=== PATIENT | female | born 1970 | race Caucasian/White ===

== ENCOUNTER 2018-11-11 21:39 | Inpatient (IN) ==
[2018-11-11] MEDS ORDERED: SODIUM CHLORIDE 0.9% 1000ML 1,000 ML IV ONE (22:00)
[2018-11-11] MEDS ORDERED: ACETAMINOPHEN 1,000 MG/100 ML VIAL IV STA (22:19)
[2018-11-11] MEDS ORDERED: FAMOTIDINE 20MG/5ML IV PUSH IV STA (22:19)
[2018-11-11] MEDS ORDERED: PROCHLORPERAZINE 2 ML IV ONE (22:19)
[2018-11-11 22:28] LABS: Basophils # (auto) 0.03 K/uL (0-0.2); Basophils % (auto) 0.2 %; Eosinophils # (auto) 0.12 K/uL (0-0.5); Eosinophils % (auto) 0.9 %; Hematocrit (blood only) 51.5 % (37-47); Hemoglobin 18.4 g/dL (12.0-16.0); Immature Granulocytes # (auto) 0.03 K/uL (0.00-0.02); Immature Granulocytes % (auto) 0.2 %; Lymphocytes # (auto) 2.01 K/uL (1.2-3.4); Lymphocytes % (auto) 15.2 %; Mean Corpuscular Hgb Conc 35.7 g/dL (32-36); Mean Corpuscular Volume 86.3 fL (80-100); Mean Platelet Volume 9.6 fL (7.4-10.4); Monocytes # (auto) 0.68 K/uL (0.11-0.59); Monocytes % (auto) 5.1 %; Neutrophils # (auto) 10.37 K/uL (1.4-6.5); Neutrophils % (auto) 78.4 %; Platelet Count 352 K/uL (130-400); RDW Coefficient of Variation 13.7 % (11.5-14.5); RDW Standard Deviation 43.4 fL (36.4-46.3); Red Blood Count 5.97 M/uL (4.2-5.4); White Blood Count 13.24 K/uL (4.8-10.8)
[2018-11-11 22:29] LABS: Albumin Level 3.8 gm/dl (3.4-5.0); BUN Creatinine Ratio 10.6 (10-20); Calcium 10.2 mg/dl (8.5-10.1); Creatinine Clr Calc Pharmacy 84.7 ml/min; Est GFR (African American) 79.1; Est GFR (Non-African American) 68.2; Potassium 3.9 mmol/L (3.5-5.1)
[2018-11-11 22:32] LABS: Albumin Globulin Ratio 0.8 (0.9-2); Bilirubin,Total 0.5 mg/dl (0.2-1); Globulin 4.5 gm/dl (2.5-4.0); Total Protein 8.3 gm/dl (6.4-8.2)
[2018-11-11 22:34] LABS: Pregnancy Test, Serum Negative (Negative)
--- NOTE | 2018-11-11 22:44 | XRay Report ---
XR chest 1V portable CLINICAL HISTORY: Abdominal pain. COMPARISON STUDY: No previous studies for comparison. FINDINGS: Lung volumes are normal. There is no pneumothorax or pleural effusion. No consolidation or evidence for pulmonary edema. Cardiomediastinal silhouette is normal. IMPRESSION: No acute cardiopulmonary findings. Electronically signed by: Lalo Mills M.D. 11/11/2018 10:43 PM
[2018-11-11] MEDS ORDERED: IOVERSOL 100ml IV PRN (23:12)
[2018-11-11 23:30] LABS: Appearance Urine Cloudy (Clear); Bacteria Urine Automated Negative (Negative); Blood Urine Negative (Negative); Color Urine Dark Yellow; Epithelial Cell Urine Auto >30 /lpf (0-5); Glucose Urine UA Negative (Negative); Ketones Urine 1+ (Negative); Leukocyte Esterase Urine Trace (Negative); Nitrite Urine Negative (Negative); Protein Urine 1+ (Negative); RBC Urine Automated 0-4 /hpf (0-4); Specific Gravity Urine 1.026 (1.000-1.030); Urobilinogen Urine Negative (Negative)
[2018-11-11 23:35] LABS: Bilirubin Urine Negative (Negative); Ictotest Urine Negative (Negative)
[2018-11-11 23:43] LABS: Renal Epithelial Cells Urine 0-5 /lpf (0-5)
--- NOTE | 2018-11-12 00:18 | Emergency Department Note ---
Entered by Jonathan Awan acting as a scribe for Fred Lambert MD History of Present Illness General Chief complaint: Abdominal Pain Stated complaint: SEVERE CRAMPING IN STOMACH, CAN'T KEEP ANYTHING DO Time Seen by Provider: 11/11/18 22:00 Source: patient History of Present Illness Onset (ago): day(s) 2 Location: abdomen (upper) Pain Consistency: + intermittent Relieved By: + none Associated symptoms: + denies other symptoms (diarrhea, painful urination), + nausea/vomiting and + other (reflux); no fever/chills The patient is a 48 year old F who presents to the Emergency Room with complaints of intermittent upper abdominal pain that started 2 days ago. She states that 2 days ago she had a cheesesteak to eat from [employer]. She notes that she felt good when she went to sleep but notes that she was experiencing nausea when she woke up. She adds that she had burgers to eat last night and experienced worsening nausea and reflux that kept her from falling asleep. She notes that she tried to eat a banana and a ham sandwich today but vomited up both. She states that she is currently experiencing reflux, nausea, and vomiting. She denies experiencing a fever, chills, diarrhea, and painful u rination. She adds that she had a normal bowel movement today. She denies taking an antacid for her reflux. She notes that she took a hydrocodone yesterday but not today due to her vomiting. She states that she experienced her current symptoms in August. She notes that a CT of her abdomen at the time showed no problems. She states that compared to August, her symptoms are worse. She denies a history of pancreatitis. Home Medications Home Medications Medication Instructions Recorded Confirmed Type buspirone 5 mg PO BID 11/01/18 11/11/18 History sertraline 100 mg PO BID 11/01/18 11/11/18 History zolpidem [Ambien] 10 mg PO HS PRN 11/01/18 11/11/18 History cephalexin 500 mg PO QID 10 Days #40 cap 11/03/18 11/11/18 Rx oxycodone-acetaminophen [Percocet] 1 - 2 tab PO .q4-6h PRN #30 tab 11/03/18 11/11/18 Rx omeprazole 20 mg PO DAILY 11/12/18 11/12/18 History Allergies Allergy/AdvReac Type Severity Reaction Status Date / Time ciprofloxacin [From Cipro] AdvReac Severe Vomiting Verified 11/11/18 23:59 Past Med/Surg History Medical History Depression (Chronic) Gout (Chronic) PT DENIES Wound of left foot Morbid obesity (Chronic) Anxiety History of PCOS NO MEDICATION CURRENTLY 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 CURRENTLY IN REMISSION. Smoker Surgical History History of cholecystectomy (Chronic) OPEN History of nephrectomy (Chronic) LEFT Family History Mother Family history of diabetes mellitus Father Family history of diabetes mellitus Social History Preferred Language: Tuvaluan Communication Ability: Effective Bi Consultant Required: No Beliefs That Will Affect Care: None Current Living Situation: Spouse Other Information That Helps Us Care for You: No Feels Safe at Home: Yes Safety Concerns: Feels Safe At This Time Smoking Status: Current every day smoker Tobacco Type: cigarettes Cigarettes Per Day: 20 Do You Dip or Chew Tobacco: No Second Hand Exposure: No Tobacco Cessation Education Requested by Patient: No Hx Alcohol Use: No Hx Substance Use: No Review of Systems See HPI for pertinent positives & negatives. and A total of 10 systems reviewed and were otherwise negative Physical Exam Vital Signs Vital Signs - 24 hr 11/11/18 21:45 11/11/18 23:23 11/12/18 00:16 Temperature 36.9 C 36.7 C Temperature Source Oral Oral Sepsis Recent Fever Within 48 Hours No Sepsis New/Unexplained Change in Mental Status No Sepsis Action Taken by Nursing No Action Required Pulse Rate 105 H Pulse Rate [Left Apical] 83 68 Pulse Rate [Left Finger] Pulse Rhythm [Left Apical] Regular Respiratory Rate 18 20 16 Respiratory Effort / Characteristics Non-Labored Spontaneous Respiratory Depth Normal Respiratory Pattern Regular Blood Pressure 132/86 Blood Pressure [Left Arm] Blood Pressure [Right Arm] 113/88 141/61 H Blood Pressure Mean 101 Blood Pressure Mean [Left Arm] Blood Pressure Mean [Right Arm] 96 87 Blood Pressure Position [Left Arm] Pulse Oximetry 95 93 94 Oxygen Delivery Method Room Air Room Air Room Air 11/12/18 01:18 11/12/18 01:36 Temperature 36.8 C Temperature Source Oral Sepsis Recent Fever Within 48 Hours Sepsis New/Unexplained Change in Mental Status Sepsis Action Taken by Nursing Pulse Rate 87 Pulse Rate [Left Apical] Pulse Rate [Left Finger] 85 Pulse Rhythm [Left Apical] Respiratory Rate 16 16 Respiratory Effort / Characteristics Non-Labored Respiratory Depth Normal Respiratory Pattern Regular Blood Pressure 98/58 L Blood Pressure [Left Arm] 126/78 Blood Pressure [Right Arm] Blood Pressure Mean Blood Pressure Mean [Left Arm] 94 Blood Pressure Mean [Right Arm] Blood Pressure Position [Left Arm] Sitting Pulse Oximetry 92 94 Oxygen Delivery Method Room Air Room Air GENERAL: Awake, alert, uncomfortable-appearing HENT: Normocephalic, atraumatic. Oropharynx with dry mucous membranes and otherwise unremarkable. EYES: Normal conjunctiva. Sclera non-icteric. NECK: Supple. No nuchal rigidity. FROM. No JVD. RESPIRATORY: CTA bilaterally. CARDIAC: Regular rate, normal rhythm. Extremities warm and well perfused. Pulses equal. ABDOMEN: Soft, non-distended. Mild epigastric tenderness to palpation. No peritoneal signs. No rebound or guarding. No masses. RECTAL: Deferred. MUSCULOSKELETAL: Chest examination reveals no tenderness. The back is symmetrical on inspection without obvious abnormality. There is no CVA tenderness to palpation. No joint edema. LOWER EXTREMITIES: Calves are equal size bilaterally and non-tender. No edema. No discoloration. NEURO: Normal sensorium. No sensory or motor deficits noted. SKIN: No rash or jaundice noted. Course 2211: The patient was evaluated in room B8. A complete history and physical exam was performed. 2334: I reviewed the patient's case with Dr. Woody, Gastroenterology. Dr. Nick betancourt recommends medicine admission. Dr. Woody states that if patient is still symptomatic, ng will help alleviate her symptoms quicker. 2356: I reviewed the patient's case with Dr. Pope, [facility]ist. He will evaluate the patient for further management. Consultations Consultation #1: I reviewed the patient's case with Dr. Woody, Gastroenterology. Dr. Woody recommends medicine admission. Dr. Woody states that if patient is still symptomatic, ng will help alleviate her symptoms quicker. Time: 23:34 Consultation #2: I reviewed the patient's case with Dr. Pope, [facility] Hospitalist. He will evaluate the patient for further management. Time: 23:56 Administered Medications Sodium Chloride (Nss 1000ml) 1,000 mls @ 125 mls/hr IV .Q8H SEPIDEH Stop: 12/12/18 01:34 Last Admin: 11/12/18 02:08 Dose: 125 mls/hr Documented by: [id number] Discontinued Medications Famotidine (Pepcid 20mg Iv Push) 20 mg IV ONE STA Stop: 11/11/18 22:20 Last Admin: 11/11/18 22:30 Dose: 20 mg Documented by: [id number] Sodium Chloride (Nss 1000ml) 1,000 mls @ 999 mls/hr IV .Q1H1M ONE Stop: 11/11/18 23:00 Last Infusion: 11/11/18 23:05 Dose: 0 mls/hr Documented by: [id number] Admin: 11/11/18 22:03 Dose: 999 mls/hr Documented by: [id number] Acetaminophen (Ofirmev) 1,000 mg in 100 mls @ 400 mls/hr IV NOW STA Stop: 11/11/18 22:33 Last Infusion: 11/11/18 22:52 Dose: 0 mls/hr Documented by: [id number] Admin: 11/11/18 22:30 Dose: 400 mls/hr Documented by: [id number] Prochlorperazine (Compazine) 2 mls @ 1 mls/min IV ONE ONE Stop: 11/11/18 22:20 Last Admin: 11/11/18 22:30 Dose: 1 mls/min Documented by: [id number] Ioversol (Optiray 320 100ml) 65 ml IV ONCE PRN PRN Reason: Interaction Checking Stop: 11/15/18 23:11 Last Admin: 11/11/18 23:13 Dose: 65 ml Documented by: [id number] Nicotine (Nicoderm Cq) 21 mg TD DAILY SEPIDEH Stop: 12/12/18 02:49 Last Admin: 11/12/18 04:05 Dose: Not Given Documented by: [id number] Medical Decision Making Differential Diagnosis Differential diagnosis includes: appendicitis, diverticulitis, PUD, biliary pathology, UTI, pancreatitis, obstruction, mesenteric ischemia, aortic pathology, infections, inflammatory bowel disease, renal colic, as well as others were entertained. Medical Records Attestation: I reviewed the patient's medical records. Home Medications Current Medication List: was personally reviewed by me Laboratory Data Attestation: I reviewed the patient's lab results. Result diagrams: 11/12/18 05:18 11/11/18 21:54 Lab Results 11/11/18 11/11/18 11/11/18 Range/Units 21:54 21:54 21:54 WBC 13.24 H (4.8-10.8) K/uL RBC 5.97 H (4.2-5.4) M/uL Hgb 18.4 H (12.0-16.0) g/dL Hct 51.5 H (37-47) % MCV 86.3 (80-100) fL MCH 30.8 (25-34) pg MCHC 35.7 (32-36) g/dL RDW Std Deviation 43.4 (36.4-46.3) fL RDW Coeff of Varsha 13.7 (11.5-14.5) % Plt Count 352 (130-400) K/uL MPV 9.6 (7.4-10.4) fL Immature Gran % (Auto) 0.2 % Neut % (Auto) 78.4 % Lymph % (Auto) 15.2 % [place] % (Auto) 5.1 % Eos % (Auto) 0.9 % Baso % (Auto) 0.2 % Immature Gran # (Auto) 0.03 H (0.00-0.02) K/uL Neut # (Auto) 10.37 H (1.4-6.5) K/uL Lymph # (Auto) 2.01 (1.2-3.4) K/uL [place] # (Auto) 0.68 H (0.11-0.59) K/uL Eos # (Auto) 0.12 (0-0.5) K/uL Baso # (Auto) 0.03 (0-0.2) K/uL Sodium 136 (136-145) mmol/L Potassium 3.9 (3.5-5.1) mmol/L Chloride 102 (98-107) mmol/L Carbon Dioxide 26 (21-32) mmol/L Anion Gap 9.0 (3-11) BUN 10 (7-18) mg/dl Creatinine 0.98 (0.6-1.2) mg/dl Est Cr Clr Drug Dosing 84.7 ml/min Est GFR ( Amer) 79.1 Est GFR (Non-Af Amer) 68.2 BUN/Creatinine Ratio 10.6 (10-20) Glucose 144 H (70-99) mg/dl Calcium 10.2 H (8.5-10.1) mg/dl Total Bilirubin 0.5 (0.2-1) mg/dl AST 19 (15-37) U/L ALT 24 (12-78) U/L Alkaline Phosphatase 117 (45-117) U/L Troponin I (0-0.045) ng/ml Total Protein 8.3 H (6.4-8.2) gm/dl Albumin 3.8 (3.4-5.0) gm/dl Globulin 4.5 H (2.5-4.0) gm/dl Albumin/Globulin Ratio 0.8 L (0.9-2) Lipase 104 (73-393) U/L HCG, Qual Negative (Negative) Urine Color Urine Appearance (Clear) Urine pH (4.5-7.5) Ur Specific [place] (1.000-1.030) Urine Protein (Negative) Urine Glucose (UA) (Negative) Urine Ketones (Negative) Urine Blood (Negative) Urine Nitrite (Negative) Urine Bilirubin (Negative) Urine Urobilinogen (Negative) Ur Leukocyte Esterase (Negative) Urine WBC (Auto) (0-5) /hpf Urine RBC (Auto) (0-4) /hpf U Hyaline Cast (Auto) (0-5) /lpf U Epithel Cells (Auto) (0-5) /lpf Urine Bacteria (Auto) (Negative) Ur Renal Epithelial Cell (0-5) /lpf 11/11/18 11/11/18 11/12/18 Range/Units 22:51 23:15 05:18 WBC 10.75 (4.8-10.8) K/uL RBC 5.11 (4.2-5.4) M/uL Hgb 15.6 (12.0-16.0) g/dL Hct 44.4 (37-47) % MCV 86.9 (80-100) fL MCH 30.5 (25-34) pg MCHC 35.1 (32-36) g/dL RDW Std Deviation 43.8 (36.4-46.3) fL RDW Coeff of Varsha 13.7 (11.5-14.5) % Plt Count 257 (130-400) K/uL MPV 9.3 (7.4-10.4) fL Immature Gran % (Auto) 0.1 % Neut % (Auto) 66.5 % Lymph % (Auto) 24.5 % [place] % (Auto) 6.7 % Eos % (Auto) 1.9 % Baso % (Auto) 0.3 % Immature Gran # (Auto) 0.01 (0.00-0.02) K/uL Neut # (Auto) 7.16 H (1.4-6.5) K/uL Lymph # (Auto) 2.63 (1.2-3.4) K/uL [place] # (Auto) 0.72 H (0.11-0.59) K/uL Eos # (Auto) 0.20 (0-0.5) K/uL Baso # (Auto) 0.03 (0-0.2) K/uL Sodium (136-145) mmol/L Potassium (3.5-5.1) mmol/L Chloride (98-107) mmol/L Carbon Dioxide (21-32) mmol/L Anion Gap (3-11) BUN (7-18) mg/dl Creatinine (0.6-1.2) mg/dl Est Cr Clr Drug Dosing ml/min Est GFR ( Amer) Est GFR (Non-Af Amer) BUN/Creatinine Ratio (10-20) Glucose (70-99) mg/dl Calcium (8.5-10.1) mg/dl Total Bilirubin (0.2-1) mg/dl AST (15-37) U/L ALT (12-78) U/L Alkaline Phosphatase (45-117) U/L Troponin I < 0.015 (0-0.045) ng/ml Total Protein (6.4-8.2) gm/dl Albumin (3.4-5.0) gm/dl Globulin (2.5-4.0) gm/dl Albumin/Globulin Ratio (0.9-2) Lipase (73-393) U/L HCG, Qual (Negative) Urine Color Dark Yellow Urine Appearance Cloudy A (Clear) Urine pH 6.0 (4.5-7.5) Ur Specific [place] 1.026 (1.000-1.030) Urine Protein 1+ H (Negative) Urine Glucose (UA) Negative (Negative) Urine Ketones 1+ H (Negative) Urine Blood Negative (Negative) Urine Nitrite Negative (Negative) Urine Bilirubin Negative (Negative) Urine Urobilinogen Negative (Negative) Ur Leukocyte Esterase Trace H (Negative) Urine WBC (Auto) 1-5 (0-5) /hpf Urine RBC (Auto) 0-4 (0-4) /hpf U Hyaline Cast (Auto) 5-10 H (0-5) /lpf U Epithel Cells (Auto) >30 H (0-5) /lpf Urine Bacteria (Auto) Negative (Negative) Ur Renal Epithelial Cell 0-5 (0-5) /lpf Imaging Data Radiologist's Impression: Radiology results as stated below per my review and the radiologist's interpretation: XR chest 1V portable CLINICAL HISTORY: Abdominal pain. COMPARISON STUDY: No previous studies for comparison. FINDINGS: Lung volumes are normal. There is no pneumothorax or pleural effusion. No consolidation or evidence for pulmonary edema. Cardiomediastinal silhouette is normal. IMPRESSION: No acute cardiopulmonary findings. Electronically signed by: Lalo Mills M.D. 11/11/2018 10:[address] ABDOMEN & PELVIS With Contrast: Dilated fluid-filled loops of small bowel in the upper abdomen with distally decompressed loops. Findings concerning for small bowel obstruction. Appendix is normal. Gallbladder is not visualized. Possibly surgically absent. Please correlate. Evidence of prior granulomatous disease. Prior left nephrectomy. ECG Data Attestation: I personally reviewed and interpreted this ECG as follows: Indication: abdominal pain Rate (beats per minute): 89 Rhythm: sinus rhythm Findings: + nonspecific-ST abn and + Q waves (nonspecific abnormalities); no acute ischemic change Blood Pressure Blood Pressure Findings: Elevated blood pressure Blood Pressure Disposition: further management by hospitalist RACHAEL Valenzuela The patient is a pleasant 48 y/o woman with a pmhx of prior cholecystecomty and remote retroperitoneal fibrosis who presents to the emergency department with upper abdominal pain and nausea and vomiting for past 2 days per HPI. On arrival the patient is in NAD, AFVSS. Patient appears clinically cry. She has mild epigasric tenderness without peritoneal signs. EKG without overt acute ischemia. CXR negative. WBC, H/H, platelets wnl. Chemistry without acidosis. LFTs and electrolytes unremarkable. UA negative. WBC 13.2. HCT 51 c/w patient's clinically dry appearance. Platelets wnl. Chemistry without acidosis. LFTs and electrolytes unremarkable. Troponin negative. CT abd pelvis with SBO per pr eliminary [facility] report. Patient re-evaluated and feeling improved after IVF hydration, pepcid, and compazine. Prefers to defer NG tube at this time. Case d/w Dr. Woody, General surgery manager pulmonary, recommends admission to medicine, NG tube if symptoms persist, and refugio will be available for admitting consultation. Case d/w Dr. Pope, [facility] hospitalist, who will evaluate the patient for admission. Impression & Plan SBO (small bowel obstruction) Discharge Plan Visit Data *Final* Discharge Date/Time: 11/12/18 01:18 Chief Complaint: Abdominal Pain Stated Complaint: SEVERE CRAMPING IN STOMACH, CAN'T KEEP ANYTHING DO ED Provider: Fred Lambert Discharge Problem: SBO (small bowel obstruction) Patient Disposition: Admitted As Inpatient Discharge Instructions Interventions: ED Discharge Assessment Last Done: 11/12/18 01:18 The scribe's documentation has been prepared under my direction and personally reviewed by me in its entirety. I confirm that the note above accurately reflects all work, treatment, procedures, and medical decision making performed by me.
[2018-11-12] MEDS ORDERED: OXYCODONE/ACETAMINOPHEN 5mg/325mg TAB PO PRN (01:35)
[2018-11-12] MEDS ORDERED: ONDANSETRON INJ 2 MG/ML 2 ML VIAL IV PRN (01:35)
[2018-11-12] MEDS ORDERED: ZOLPIDEM TARTRATE 10 MG TAB PO PRN (01:35)
[2018-11-12] MEDS ORDERED: MoRPHine SULFATE 4 MG/ML 1 ML CARP\\VIAL IV PRN (01:35)
[2018-11-12] MEDS ORDERED: ACETAMINOPHEN 325 MG TAB PO PRN (01:35)
[2018-11-12] MEDS: SODIUM CHLORIDE 0.9% 1000ML 1,000 ML IV SCH ×2 (02:08→11:11)
--- NOTE | 2018-11-12 02:10 | History and Physical Report ---
DATE OF ADMISSION: 11/12/2018 CHIEF COMPLAINT: Abdominal pain. 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 Initially started with nausea, then with abdominal pain and then she vomited, pain is 8/10 in severity in the upper abdomen. No radiation. Currently with the pain medication, the pain is improved. Imaging study shows small-bowel obstruction. After the pain medication, she is feeling better. Currently, no nausea. She recently had left plantar surgery in September and again she has I and D and was given Keflex for 10 days. However, she did not take the medication today because of nausea but currently her nausea has improved. Denies any headache, no blurred vision, no dizziness, no earache, no sore throat, no difficulty swallowing. No chest pain or shortness of breath. No cough, no fever, no chills. Last bowel movement was today in the night, currently not passing any gas. No recent melena or hematochezia. Normal bladder movements. No burning micturition, no hematuria. No swelling in the legs. No rash. Currently, resting comfortably and hemodynamically stable. ALLERGIES: CIPROFLOXACIN. PAST MEDICAL HISTORY: As mentioned above. PAST SURGICAL HISTORY: Exploration of the abdomen, left retroperitoneal fibrosis, removal of left kidney, excision neuroma on the left, cholecystectomy. MEDICATIONS: The patient is on buspirone 5 mg p.o. b.i.d., cephalexin 500 mg p.o. q.i.d., omeprazole 20 mg p.o. daily, Percocet 1 tablet p.o. q. 6 hours p.r.n., Zoloft 100 mg p.o. b.i.d., zolpidem 10 mg p.o. at bedtime p.r.n. FAMILY HISTORY: Significant for mother has diabetes, hypertension and stroke. Father has heart disorder, hypertension. Sister has uterine cancer. Aunt and paternal grandmother has breast cancer. SOCIAL HISTORY: , smokes 1 pack a day. No alcohol use, no drug use. REVIEW OF SYMPTOMS: As per HPI. Rest of review of systems negative. PHYSICAL EXAMINATION: GENERAL: The patient is morbidly obese, not in acute distress. VITAL SIGNS: Temperature 36.7, pulse 68, respiratory rate 16, blood pressure 141/61, oxygen 94% room air. HEENT: No pallor, no icterus. Pupils equal, round, and reactive to light. NECK: No JVD, no neck masses, no carotid bruits. CARDIOVASCULAR: S1, S2 heard, regular rate and rhythm, no murmur, no gallop. RESPIRATORY SYSTEM: Normal AP diameter. No accessory muscle use. No wheezing, no crackles. ABDOMEN: Soft, bowel sounds very sluggish, diffuse abdominal tenderness. Mild guarding, no rigidity. No distention. CENTRAL NERVOUS SYSTEM: Cranial nerves II-XII grossly intact. Nonfocal. EXTREMITIES: Left plantar in dressing. No edema, no erythema seen. LABORATORIES: WBC 13.2, hemoglobin 18.4, hematocrit 51.5, platelets 352. Sodium 136, potassium 3.9, chloride 102, bicarbonate 26, BUN 10, creatinine 0.9, serum glucose 144, calcium 10.2, total bilirubin 0.5, AST 19, ALT 24, alkaline phosphatase 117. Troponin I less than 0.015. Lipase 104. HCG negative. Urinalysis positive for protein and ketones, trace leukocyte esterase. Chest x-ray, no acute cardiopulmonary findings. CT abdomen and pelvis, official reading pending. EKG: Normal sinus rhythm with rate of 89, nonspecific abnormalities. ASSESSMENT AND PLAN: This 48-year-old female who presents with abdominal pain and found to have small-bowel obstruction. 1. Small-bowel obstruction, abdominal pain. We will keep her n.p.o., IV fluids, IV antiemetics, IV pain meds p.r.n. Follow official report of CT scan. Followup KUB in a.m. Consult surgery for further recommendations. 2. Recent left plantar surgery, status post I and D, on Keflex, if not able to take p.o., will be changed to IV. 3. Depression. Continue Zoloft 4. Anxiety. Continue buspirone. 5. Prediabetes. We will follow HbA1c levels. Currently, n.p.o. 6. Deep venous thrombosis prophylaxis, sequential compression devices for now. 4. Disposition: Admit to medical floor. Expect to discharge home and follow up with the family doctor. Level 1 full code. MTDD
[2018-11-12] MEDS ORDERED: NICOTINE 21 MG/24 HR TDSY TD SCH (02:50)
[2018-11-12] MEDS ORDERED: Nursing to Pharmacy Communication ONE (03:46)
[2018-11-12 05:33] LABS: Basophils # (auto) 0.03 K/uL (0-0.2); Basophils % (auto) 0.3 %; Eosinophils % (auto) 1.9 %; Hematocrit (blood only) 44.4 % (37-47); Hemoglobin 15.6 g/dL (12.0-16.0); Immature Granulocytes # (auto) 0.01 K/uL (0.00-0.02); Immature Granulocytes % (auto) 0.1 %; Lymphocytes # (auto) 2.63 K/uL (1.2-3.4); Lymphocytes % (auto) 24.5 %; Mean Corpuscular Hgb Conc 35.1 g/dL (32-36); Mean Corpuscular Volume 86.9 fL (80-100); Mean Platelet Volume 9.3 fL (7.4-10.4); Monocytes # (auto) 0.72 K/uL (0.11-0.59); Monocytes % (auto) 6.7 %; Neutrophils # (auto) 7.16 K/uL (1.4-6.5); Neutrophils % (auto) 66.5 %; Platelet Count 257 K/uL (130-400); RDW Coefficient of Variation 13.7 % (11.5-14.5); RDW Standard Deviation 43.8 fL (36.4-46.3); Red Blood Count 5.11 M/uL (4.2-5.4); White Blood Count 10.75 K/uL (4.8-10.8)
[2018-11-12 06:09] LABS: BUN Creatinine Ratio 14.6 (10-20); Calcium 8.6 mg/dl (8.5-10.1); Creatinine Clr Calc Pharmacy 114.1 ml/min; Est GFR (African American) 112.9; Est GFR (Non-African American) 97.4; Magnesium 2.5 mg/dl (1.8-2.4); Potassium 3.8 mmol/L (3.5-5.1)
--- NOTE | 2018-11-12 07:34 | CT Scan Report ---
CT SCAN OF THE ABDOMEN AND PELVIS WITH IV CONTRAST CLINICAL HISTORY: Upper abdominal pain. Nausea and vomiting. COMPARISON STUDY: No priors. TECHNIQUE: Following the IV administration of 65 cc of Optiray 320, CT scan of the abdomen and pelvi s is performed from the lung bases to the proximal femora. Images are reviewed in the axial, sagittal , and coronal planes. IV contrast was administered without complication. A dose lowering technique wa s utilized adhering to the principles of ALARA. CT DOSE: 1067.06 mGycm FINDINGS: Lung bases: The heart is normal in size and without pericardial effusion. There is no airspace consol idation or pleural effusion. There is a large calcified granuloma at the right lung base. A calcified right hilar node is partially imaged. There is a small hiatal hernia. Liver: The contrast-enhanced liver is enlarged, measuring 18.9 cm in length. The liver demonstrates d iffusely diminished attenuation consistent with hepatic steatosis. There is minimal central intrahepa tic biliary ductal dilatation. The hepatic veins and portal veins are patent. Gallbladder: Surgically absent. Spleen: Normal in size and attenuation. Pancreas: Unremarkable. Adrenal glands: Unremarkable. Kidneys: The left kidney is surgically absent. No abnormality is seen within the left renal fossa. Th e contrast enhanced right kidney is normal in size and without hydronephrosis. The right kidney enhan supa homogeneously. Abdominal vasculature: The abdominal aorta is normal in course and caliber. Bowel: The proximal small bowel loops are distended and fluid-filled, measuring up to 4 cm in diamete r. The distal small bowel and colon are decompressed an the appearance is consistent with a small bow el obstruction. The transition point is likely present in the ventral upper pelvis, and this is likel y on the basis of adhesions. There is no pneumatosis intestinalis or portal venous gas. No focally th ick walled bowel loops are identified. Trace interloop fluid is observed. The appendix is well-visua lized and normal. Peritoneum: There is no intraperitoneal free air or abdominal ascites. Lymphadenopathy: None. Pelvic viscera: The bladder is decompressed and not well evaluated. The uterus and adnexa are normal as imaged. There are bilateral ovarian follicles. Skeletal structures: No lytic or blastic lesions are seen. Sclerotic change is noted in the sacroilia c joints. IMPRESSION: 1. Findings are consistent with a small bowel obstruction as detailed above. This is likely on the ba sis of adhesions. 2. There is interloop fluid. No focally thick walled bowel loops are identified and no intraperitonea l free air is seen. 3. Status post left nephrectomy. 4. Hepatomegaly and hepatic steatosis. 5. Additional findings as above. Electronically signed by: Aashish Stoner M.D. 11/12/2018 7:33 AM
[2018-11-12] MEDS: NICOTINE 21 MG/24 HR TDSY TD SCH (09:25)
[2018-11-12] MEDS: SERTRALINE HCL 100 MG TABLET PO SCH ×2 (09:25→20:38)
[2018-11-12] MEDS: PANTOprazole 40 MG TAB PO SCH (09:25)
[2018-11-12] MEDS: cephALEXin 500 MG CAP PO SCH ×4 (09:25→20:38)
--- NOTE | 2018-11-12 09:25 | XRay Report ---
KUB CLINICAL HISTORY: Follow-up small bowel obstruction. FINDINGS: 4 AP supine abdominal radiographs are correlated with abdominal CT dated 11/11/2018. Numerous surgical clips are scattered throughout the abdomen and pelvis. There is no radiographic evidence of high-grade bowel obstruction. Mildly distended small bowel loops measure up to 4.3 cm consistent wit h a small bowel obstruction seen on yesterday's CT scan. Gas is present throughout the colon. There i s excreted IV contrast within the right renal collecting system and bladder. There are no abnormal ab dominal calcifications. The bony structures appear intact. The lung bases are clear as imaged. IMPRESSION: Findings are consistent with persistent low-grade small bowel obstruction. Electronically signed by: Aashish Stoner M.D. 11/12/2018 9:24 AM
--- NOTE | 2018-11-12 13:13 | Consultation ---
Date of Consultation November 12, 2018 Assessment & Plan (1) SBO (small bowel obstruction): 48 yr old woman with first episode of small bowel obstruction likely related to prior adhesions. Appears to be improving. Would continue bowel rest, IVF for today. If better tomorrow, can start clear liquids. Explained that it can take 1-3 days to resolve. Risk of recurrence reviewed. No indication for surgical intervention currently. she was scheduled for a D&C tomorrow for eval of vaginal bleeding. Explained this will need to be rescheduled. Present on Admission?: Yes History of Present Illness Requesting Physician: Chance Mendez MD Reason for Consultation: small bowel obstruction Attending Physician: Chance Mendez MD History of Present Illness 48 yr old woman with history of open cholecystectomy, exploratory laparatomy, nephrectomy presents with abdominal pain, nausea and vomiting of one day's duration. Pain started acutely. No prior similar episodes. Was sharp, cramping, coming in waves, located in upper abdomen. Prior to pain had nausea and then vomiting. Last bowel movement was smaller than usual. [place] more bloated. Pain better with pain medications. No exacerbating factors. Since arrival in ER, no further vomiting, pain improved, now having loose stools. PMH notable for retroperitoneal fibrosis, morbid obesity, prediabetes. Allergies Allergy/AdvReac Type Severity Reaction Status Date / Time ciprofloxacin [From Cipro] AdvReac Severe Vomiting Verified 11/11/18 23:59 Home Medications Home Medications Medication Instructions Recorded Confirmed Type buspirone 5 mg PO BID 11/01/18 11/11/18 History sertraline 100 mg PO BID 11/01/18 11/11/18 History zolpidem [Ambien] 10 mg PO HS PRN 11/01/18 11/11/18 History cephalexin 500 mg PO QID 10 Days #40 cap 11/03/18 11/11/18 Rx oxycodone-acetaminophen [Percocet] 1 - 2 tab PO .q4-6h PRN #30 tab 11/03/18 11/11/18 Rx omeprazole 20 mg PO DAILY 11/12/18 11/12/18 History Patient History Medical History Depression (Chronic) Gout (Chronic) PT DENIES Wound of left foot Morbid obesity (Chronic) Anxiety History of PCOS NO MEDICATION CURRENTLY 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 CURRENTLY IN REMISSION. Smoker Surgical History History of cholecystectomy (Chronic) OPEN History of nephrectomy (Chronic) LEFT Family History Mother Family history of diabetes mellitus Father Family history of diabetes mellitus Social History Preferred Language: Turkmen Communication Ability: Effective Manager City Required: No Beliefs That Will Affect Care: None Current Living Situation: Spouse Other Information That Helps Us Care for You: No Feels Safe at Home: Yes Safety Concerns: Feels Safe At This Time Smoking Status: Current every day smoker Tobacco Type: cigarettes Cigarettes Per Day: 20 Do You Dip or Chew Tobacco: No Second Hand Exposure: No Tobacco Cessation Education Requested by Patient: No Hx Alcohol Use: No Hx Substance Use: No Review of Systems Constitutional: no fever and no chills Eyes: no problem reported Ear, Nose, Mouth, Throat: no problem reported Respiratory: no problem reported Cardiovascular: no problem reported Gastrointestinal: as per Subjective / HPI Genitourinary: vaginal bleeding for which she is scheduled for D&C tomorrow Integumentary: s/p recent surgery to left foot with subsequent I&D and antibiotics for cellulitis (keflex) Neurologic: no problem reported Psychiatric: no problem reported Physical Exam Constitutional: WD/WN, vitals as above Eyes: PERRL, conjunctivae normal, anicteric sclerae ENMT: external ear and nose normal, oropharynx normal Respiratory: normal respiratory effort, lungs clear to auscultation Cardiovascular: RRR, no murmur, no edema Gastrointestinal (Abdomen): Inspection/Auscultation: abdomen normal to inspection and normal bowel sounds; abdomen not distended Percussion/Palpation: abdomen soft; abdomen nontender and no guarding well healed midline incision and right subcostal incision Neurologic: moves all extremities; no focal motor deficits Psychiatric: A+Ox3, euthymic affect Results & Data Vital Signs (Past 12 Hours) Vital Signs Temp Pulse Pulse Resp BP BP Pulse Ox 11/12/18 06:56 36.7 C 91 H 18 141/80 H 91 11/12/18 01:36 36.8 C 85 16 126/78 94 11/12/18 01:18 87 16 98/58 L [address] 13.24 on admit -> 10.75 now Diagnostic Findings AXR this morning FINDINGS: 4 AP supine abdominal radiographs are correlated with abdominal CT dated 11/11/2018. Numerous surgical clips are scattered throughout the abdomen and pelvis. There is no radiographic evidence of high-grade bowel obstruction. Mildly distended small bowel loops measure up to 4.3 cm consistent with a small bowel obstruction seen on yesterday's CT scan. Gas is present throughout the colon. There is excreted IV contrast within the right renal collecting system and bladder. There are no abnormal abdominal calcifications. The bony structures appear intact. The lung bases are clear as imaged. IMPRESSION: Findings are consistent with persistent low-grade small bowel obstruction. CT SCAN OF THE ABDOMEN AND PELVIS WITH IV CONTRAST IMPRESSION: 1. Findings are consistent with a small bowel obstruction as detailed above. This is likely on the basis of adhesions. 2. There is interloop fluid. No focally thick walled bowel loops are identified and no intraperitoneal free air is seen. 3. Status post left nephrectomy. 4. Hepatomegaly and hepatic steatosis. 5. Additional findings as above.
--- NOTE | 2018-11-12 13:22 | Hospitalist Progress Note ---
Date of Service November 12, 2018 Assessment & Plan (1) SBO (small bowel obstruction): This 48-year-old female who presents with abdominal pain and found to have small-bowel obstruction. Small-bowel obstruction, abdominal pain. -CT scan 11/11/18: The proximal small bowel loops are distended and fluid-filled, measuring up to 4 cm in diameter. The distal small bowel and colon are decompressed an the appearance is consistent with a small bowel obstruction. The transition point is likely present in the ventral upper pelvis, and this is likely on the basis of adhesions. There is no pneumatosis intestinalis or portal venous gas. No focally thick walled bowel loops are identified. Trace interloop fluid is observed -KUB 11/12/18 Findings are consistent with persistent low-grade small bowel obstruction -as per general surgery: continue bowel rest, IVF for today. If better tomorrow, can start clear liquids. Explained that it can take 1-3 days to resolve. Risk of recurrence reviewed. No indication for surgical intervention currently. Recent left plantar surgery -left foot in dressing -history of incision and drainage -continue Keflex History of Depression -Continue Zoloft History of Anxiety -Continue buspirone. Prediabetes -follow HbA1c levels -Currently, NPO Deep venous thrombosis prophylaxis, sequential compression devices Full Code Subjective Patient denies vomiting today. last vomiting episode when at home. patient reports bowel movements of loose stools. denies chest pain. some tenderness on palpation of abdomen. no shortness of breath. no lightheadedness. no dizziness Physical Exam Constitutional: WD/WN, vitals as above Eyes: PERRL, conjunctivae normal, anicteric sclerae EOM intact bilaterally ENMT: external ear and nose normal, oropharynx normal Neck: trachea midline, no thyromegaly Respiratory: normal respiratory effort, lungs clear to auscultation Cardiovascular: RRR, no murmur, no edema Gastrointestinal (Abdomen): Inspection/Auscultation: abdomen normal to inspection and normal bowel sounds tenderness to palpation of epigastric area Musculoskeletal: no cyanosis or clubbing, extremities motor strength 5/5 Head/Neck/Chest: normocephalic and head atraumatic left foot in dressing Neurologic: PERRL, EOMI, accommodation nl, no face palsy, no dysarthria CN's II-XI intact bilaterally Psychiatric: A+Ox3, euthymic affect Results & Data Vital Signs (Past 12 Hours) Vital Signs Temp Pulse Resp BP Pulse Ox 11/12/18 06:56 36.7 C 91 H 18 141/80 H 91 11/12/18 01:36 36.8 C 85 16 126/78 94
[2018-11-12] MEDS: D5W AND 1/2NSS 1,000 ML IV SCH (14:15)
[2018-11-13] MEDS: D5W AND 1/2NSS 1,000 ML IV SCH (01:41)
[2018-11-13 06:31] LABS: Estimated Average Glucose 131 mg/dl; Hemoglobin A1C 6.2 % (4.5-5.6)
[2018-11-13 06:42] LABS: Basophils # (auto) 0.02 K/uL (0-0.2); Basophils % (auto) 0.4 %; Eosinophils # (auto) 0.29 K/uL (0-0.5); Eosinophils % (auto) 5.2 %; Hematocrit (blood only) 42.3 % (37-47); Hemoglobin 14.3 g/dL (12.0-16.0); Immature Granulocytes # (auto) 0.01 K/uL (0.00-0.02); Immature Granulocytes % (auto) 0.2 %; Lymphocytes # (auto) 1.65 K/uL (1.2-3.4); Lymphocytes % (auto) 29.5 %; Mean Corpuscular Hgb Conc 33.8 g/dL (32-36); Mean Corpuscular Volume 87.4 fL (80-100); Mean Platelet Volume 9.4 fL (7.4-10.4); Monocytes % (auto) 5.4 %; Neutrophils # (auto) 3.33 K/uL (1.4-6.5); Neutrophils % (auto) 59.3 %; Platelet Count 227 K/uL (130-400); RDW Coefficient of Variation 13.5 % (11.5-14.5); RDW Standard Deviation 43.4 fL (36.4-46.3); Red Blood Count 4.84 M/uL (4.2-5.4)
[2018-11-13 07:17] LABS: BUN Creatinine Ratio 9.7 (10-20); Calcium 8.5 mg/dl (8.5-10.1); Est GFR (African American) 93.9; Potassium 3.6 mmol/L (3.5-5.1)
[2018-11-13] MEDS: SERTRALINE HCL 100 MG TABLET PO SCH ×2 (08:57→20:05)
[2018-11-13] MEDS: cephALEXin 500 MG CAP PO SCH ×4 (08:57→21:40)
[2018-11-13] MEDS: NICOTINE 21 MG/24 HR TDSY TD SCH (08:57)
[2018-11-13] MEDS: PANTOprazole 40 MG TAB PO SCH (08:57)
--- NOTE | 2018-11-13 09:02 | Hospitalist Progress Note ---
Date of Service November 13, 2018 Assessment & Plan (1) SBO (small bowel obstruction): This 48-year-old female who presents with abdominal pain and found to have small-bowel obstruction. Small-bowel obstruction, abdominal pain. -CT scan 11/11/18: The proximal small bowel loops are distended and fluid-filled, measuring up to 4 cm in diameter. The distal small bowel and colon are decompressed an the appearance is consistent with a small bowel obstruction. The transition point is likely present in the ventral upper pelvis, and this is likely on the basis of adhesions. There is no pneumatosis intestinalis or portal venous gas. No focally thick walled bowel loops are identified. Trace interloop fluid is observed -KUB 11/12/18 Findings are consistent with persistent low-grade small bowel obstruction -as per general surgery on 11/12/18: continue bowel rest, IVF for today. If better tomorrow, can start clear liquids. Explained that it can take 1-3 days to resolve. Risk of recurrence reviewed. No indication for surgical intervention currently. -11/13/18 update: Patient reports she is continuing to make bowel movements but same as yesterday they are loose stools. She is urinating. No vomiting. abdomen pain appears better compared to yesterday as there is no tenderness on palpation today. Patient She agrees to try clear liquid diet today Recent left plantar surgery -left foot in dressing -history of incision and drainage -continue Keflex History of Depression -Continue Zoloft History of Anxiety -Continue buspirone. Prediabetes -HbA1c is 6.2 on this admission Deep venous thrombosis prophylaxis, sequential compression devices Full Code Subjective Patient reports she is continuing to make bowel movements but same as yesterday they are loose stools. She is urinating. No vomiting. abdomen pain appears better compared to yesterday as there is no tenderness on palpation today. Patient She agrees to try clear liquid diet today. denies chest pain or shortness of breath. denies lightheadedness or dizziness Physical Exam Constitutional: WD/WN, vitals as above Eyes: PERRL, conjunctivae normal, anicteric sclerae EOM intact bilaterally ENMT: external ear and nose normal, oropharynx normal Neck: trachea midline, no thyromegaly Respiratory: normal respiratory effort, lungs clear to auscultation Cardiovascular: RRR, no murmur, no edema Gastrointestinal (Abdomen): Inspection/Auscultation: abdomen normal to inspection and normal bowel sounds Musculoskeletal: no cyanosis or clubbing, extremities motor strength 5/5 Head/Neck/Chest: normocephalic and head atraumatic Neurologic: PERRL, EOMI, accommodation nl, no face palsy, no dysarthria CN's II-XI intact bilaterally Psychiatric: A+Ox3, euthymic affect Results & Data Vital Signs (Past 12 Hours) Vital Signs Temp Pulse Resp BP Pulse Ox 11/13/18 06:49 36.7 C 70 18 133/82 93 11/12/18 23:50 37.1 C 82 14 128/78 92
[2018-11-13] MEDS ORDERED: POLYETHYLENE (MIRALAX) 17 GM PACK PO STA (09:07)
--- NOTE | 2018-11-13 13:29 | Surgery Progress Note ---
Date of Service November 13, 2018 Assessment & Plan (1) SBO (small bowel obstruction): 48 yr old woman with first episode of small bowel obstruction likely related to prior adhesions. Appears to be improving. + bowel function. No n/v. 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 Calvo was present during my examination and agrees with above Subjective feeling much better having liquid bowel movements and passing flatus no abdominal pain no n/v tolerated clear liquids Physical Exam Constitutional: WD/WN, vitals as above + morbidly obese; no acute distress and not ill appearing Respiratory: normal respiratory effort; no respiratory distress Gastrointestinal (Abdomen): Inspection/Auscultation: abdomen normal to inspection; abdomen not distended Percussion/Palpation: abdomen soft; abdomen nontender, no guarding and abdomen not rigid Skin: no rashes, warm and dry Psychiatric: A+Ox3, euthymic affect Results & Data Vital Signs (Past 12 Hours) Vital Signs Temp Pulse Resp BP Pulse Ox 11/13/18 06:49 36.7 C 70 18 133/82 93 Laboratory Results 11/13/18 11/13/18 11/12/18 Range/Units 06:13 06:13 05:18 WBC 5.60 (4.8-10.8) K/uL RBC 4.84 (4.2-5.4) M/uL Hgb 14.3 (12.0-16.0) g/dL Hct 42.3 (37-47) % MCV 87.4 (80-100) fL MCH 29.5 (25-34) pg MCHC 33.8 (32-36) g/dL RDW Std Deviation 43.4 (36.4-46.3) fL RDW Coeff of Varsha 13.5 (11.5-14.5) % Plt Count 227 (130-400) K/uL MPV 9.4 (7.4-10.4) fL Immature Gran % (Auto) 0.2 % Neut % (Auto) 59.3 % Lymph % (Auto) 29.5 % [place] % (Auto) 5.4 % Eos % (Auto) 5.2 % Baso % (Auto) 0.4 % Immature Gran # (Auto) 0.01 (0.00-0.02) K/uL Neut # (Auto) 3.33 (1.4-6.5) K/uL Lymph # (Auto) 1.65 (1.2-3.4) K/uL [place] # (Auto) 0.30 (0.11-0.59) K/uL Eos # (Auto) 0.29 (0-0.5) K/uL Baso # (Auto) 0.02 (0-0.2) K/uL Sodium 140 (136-145) mmol/L Potassium 3.6 (3.5-5.1) mmol/L Chloride 110 H (98-107) mmol/L Carbon Dioxide 23 (21-32) mmol/L Anion Gap 7.0 (3-11) BUN 8 (7-18) mg/dl Creatinine 0.85 (0.6-1.2) mg/dl Est Cr Clr Drug Dosing 98.0 ml/min Est GFR ( Amer) 93.9 Est GFR (Non-Af Amer) 81.0 BUN/Creatinine Ratio 9.7 L (10-20) Glucose 115 H (70-99) mg/dl Estimat Average Glucose 131 mg/dl Hemoglobin A1c 6.2 H (4.5-5.6) % Calcium 8.5 (8.5-10.1) mg/dl
[2018-11-14 07:41] LABS: Basophils # (auto) 0.01 K/uL (0-0.2); Basophils % (auto) 0.2 %; Eosinophils % (auto) 5.2 %; Hematocrit (blood only) 43.2 % (37-47); Immature Granulocytes # (auto) 0.02 K/uL (0.00-0.02); Immature Granulocytes % (auto) 0.3 %; Lymphocytes # (auto) 1.68 K/uL (1.2-3.4); Lymphocytes % (auto) 28.9 %; Mean Corpuscular Hgb Conc 34.7 g/dL (32-36); Mean Corpuscular Volume 85.9 fL (80-100); Mean Platelet Volume 9.1 fL (7.4-10.4); Monocytes # (auto) 0.34 K/uL (0.11-0.59); Monocytes % (auto) 5.9 %; Neutrophils # (auto) 3.46 K/uL (1.4-6.5); Neutrophils % (auto) 59.5 %; Platelet Count 222 K/uL (130-400); RDW Coefficient of Variation 13.2 % (11.5-14.5); RDW Standard Deviation 41.4 fL (36.4-46.3); Red Blood Count 5.03 M/uL (4.2-5.4); White Blood Count 5.81 K/uL (4.8-10.8)
[2018-11-14 08:13] LABS: BUN Creatinine Ratio 8.2 (10-20); Calcium 8.9 mg/dl (8.5-10.1); Creatinine Clr Calc Pharmacy 90.6 ml/min; Est GFR (African American) 85.3; Est GFR (Non-African American) 73.6; Potassium 3.8 mmol/L (3.5-5.1)
--- NOTE | 2018-11-14 08:45 | Surgery Progress Note ---
Date of Service November 14, 2018 Assessment & Plan (1) SBO (small bowel obstruction): 48 yr old woman with first episode of small bowel obstruction likely related to prior adhesions. Resolved. No further abdominal pain. + bowel function. No n/v. tolerating full liquids Plan: Advance diet to low fiber this morning, if tolerates, okay from surgical standpoint for discharge. 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 Becoming more formed Review of Systems Constitutional: no fever, no chills and no sweats Respiratory: no dyspnea Cardiovascular: no chest pain, no dyspnea and no lightheadedness Gastrointestinal: as per Subjective / HPI Physical Exam Constitutional: + morbidly obese Respiratory: normal respiratory effort; no respiratory distress Gastrointestinal (Abdomen): Inspection/Auscultation: abdomen not distended Percussion/Palpation: abdomen soft; abdomen nontender, no guarding and abdomen not rigid Skin: no rashes, warm and dry Psychiatric: A+Ox3, euthymic affect Results & Data Vital Signs (Past 12 Hours) Vital Signs Temp Pulse Resp BP Pulse Ox 11/14/18 06:56 36.6 C 67 18 117/82 92 11/13/18 23:10 36.8 C 63 16 138/75 92 Laboratory Results 11/14/18 11/14/18 Range/Units 07:30 07:30 WBC 5.81 (4.8-10.8) K/uL RBC 5.03 (4.2-5.4) M/uL Hgb 15.0 (12.0-16.0) g/dL Hct 43.2 (37-47) % MCV 85.9 (80-100) fL MCH 29.8 (25-34) pg MCHC 34.7 (32-36) g/dL RDW Std Deviation 41.4 (36.4-46.3) fL RDW Coeff of Varsha 13.2 (11.5-14.5) % Plt Count 222 (130-400) K/uL MPV 9.1 (7.4-10.4) fL Immature Gran % (Auto) 0.3 % Neut % (Auto) 59.5 % Lymph % (Auto) 28.9 % [place] % (Auto) 5.9 % Eos % (Auto) 5.2 % Baso % (Auto) 0.2 % Immature Gran # (Auto) 0.02 (0.00-0.02) K/uL Neut # (Auto) 3.46 (1.4-6.5) K/uL Lymph # (Auto) 1.68 (1.2-3.4) K/uL [place] # (Auto) 0.34 (0.11-0.59) K/uL Eos # (Auto) 0.30 (0-0.5) K/uL Baso # (Auto) 0.01 (0-0.2) K/uL Sodium 140 (136-145) mmol/L Potassium 3.8 (3.5-5.1) mmol/L Chloride 108 H (98-107) mmol/L Carbon Dioxide 25 (21-32) mmol/L Anion Gap 7.0 (3-11) BUN 8 (7-18) mg/dl Creatinine 0.92 (0.6-1.2) mg/dl Est Cr Clr Drug Dosing 90.6 ml/min Est GFR ( Amer) 85.3 Est GFR (Non-Af Amer) 73.6 BUN/Creatinine Ratio 8.2 L (10-20) Glucose 105 H (70-99) mg/dl Calcium 8.9 (8.5-10.1) mg/dl
[2018-11-14] MEDS: cephALEXin 500 MG CAP PO SCH (08:48)
[2018-11-14] MEDS: NICOTINE 21 MG/24 HR TDSY TD SCH (08:48)
[2018-11-14] MEDS: PANTOprazole 40 MG TAB PO SCH (08:48)
[2018-11-14] MEDS: SERTRALINE HCL 100 MG TABLET PO SCH (08:49)
--- NOTE | 2018-11-14 10:48 | Hospitalist Progress Note ---
Date of Service November 14, 2018 Assessment & Plan (1) SBO (small bowel obstruction): This 48-year-old female who presents with abdominal pain and found to have small-bowel obstruction. Small-bowel obstruction, abdominal pain. -CT scan 11/11/18: The proximal small bowel loops are distended and fluid-filled, measuring up to 4 cm in diameter. The distal small bowel and colon are decompressed an the appearance is consistent with a small bowel obstruction. The transition point is likely present in the ventral upper pelvis, and this is likely on the basis of adhesions. There is no pneumatosis intestinalis or portal venous gas. No focally thick walled bowel loops are identified. Trace interloop fluid is observed -KUB 11/12/18 Findings are consistent with persistent low-grade small bowel obstruction -as per general surgery on 11/12/18: continue bowel rest, IVF for today. If better tomorrow, can start clear liquids. Explained that it can take 1-3 days to resolve. Risk of recurrence reviewed. No indication for surgical intervention currently. -11/13/18 update: Patient reports she is continuing to make bowel movements but same as yesterday they are loose stools. She is urinating. No vomiting. abdomen pain appears better compared to yesterday as there is no tenderness on palpation today. Patient She agrees to try clear liquid diet today -11/14/18: patient's diet was advanced to full liquids at night time of 11/13/18 and no acute issues; general surgery started low fiber diet and encouraged ambulation to help with bowel motility and no surgical interventions Recent left plantar surgery -left foot in dressing -history of incision and drainage -continue Keflex History of Depression -Continue Zoloft History of Anxiety -Continue buspirone. Prediabetes -HbA1c is 6.2 on this admission -Recommend low sugar diet to prevent prediabetes condition from becoming diabetes conditions Deep venous thrombosis prophylaxis, sequential compression devices Full Code Discharge Diagnosis Small bowel obstruction, Prediabetes (Hemoglobin A1c is 6.2), History of depression (on antidepressants) Discharge Instructions Patient is discharged to home with follow up Recommend low fiber diet for the next week encouraged ambulation to help with bowel motility Recommend low sugar diet to prevent prediabetes condition from becoming diabetes conditions 11/17/2018 10:20 AM Provider Zully Aguirre MD [facility] 11/30/2018 2:30 PM Provider Kristina Chinchilla MD Department [facility] Gynecology/Obstetrics Subjective patient tolerated liquid diet and then the low fiber diet. no abdomen pain. no vomiting. continues to be able to make bowel movements. no lightheadedness. no dizziness. discharge instructions were discussed. Physical Exam Constitutional: WD/WN, vitals as above Eyes: PERRL, conjunctivae normal, anicteric sclerae EOM intact bilaterally ENMT: external ear and nose normal, oropharynx normal Neck: trachea midline, no thyromegaly Respiratory: normal respiratory effort, lungs clear to auscultation Cardiovascular: RRR, no murmur, no edema Gastrointestinal (Abdomen): Inspection/Auscultation: abdomen normal to inspection and normal bowel sounds Musculoskeletal: no cyanosis or clubbing, extremities motor strength 5/5 Head/Neck/Chest: normocephalic and head atraumatic Neurologic: PERRL, EOMI, accommodation nl, no face palsy, no dysarthria CN's II-XI intact bilaterally Psychiatric: A+Ox3, euthymic affect Results & Data Vital Signs (Past 12 Hours) Vital Signs Temp Pulse Resp BP Pulse Ox 11/14/18 06:56 36.6 C 67 18 117/82 92 11/13/18 23:10 36.8 C 63 16 138/75 92
--- NOTE | 2018-11-14 10:57 | Discharge Summary ---
Date of Service November 14, 2018 Admission HPI Per Admitting Provider DATE OF ADMISSION: 11/12/2018 CHIEF COMPLAINT: Abdominal pain. 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 Initially started with nausea, then with abdominal pain and then she vomited, pain is 8/10 in severity in the upper abdomen. No radiation. Currently with the pain medication, the pain is improved. Imaging study shows small-bowel obstruction. After the pain medication, she is feeling better. Currently, no nausea. She recently had left plantar surgery in September and again she has I and D and was given Keflex for 10 days. However, she did not take the medication today because of nausea but currently her nausea has improved. Denies any headache, no blurred vision, no dizziness, no earache, no sore throat, no difficulty swallowing. No chest pain or shortness of breath. No cough, no fever, no chills. Last bowel movement was today in the night, currently not passing any gas. No recent melena or hematochezia. Normal bladder movements. No burning micturition, no hematuria. No swelling in the legs. No rash. Currently, resting comfortably and hemodynamically stable. ALLERGIES: CIPROFLOXACIN. PAST MEDICAL HISTORY: As mentioned above. PAST SURGICAL HISTORY: Exploration of the abdomen, left retroperitoneal fibrosis, removal of left kidney, excision neuroma on the left, cholecystectomy. MEDICATIONS: The patient is on buspirone 5 mg p.o. b.i.d., cephalexin 500 mg p.o. q.i.d., omeprazole 20 mg p.o. daily, Percocet 1 tablet p.o. q. 6 hours p.r.n., Zoloft 100 mg p.o. b.i.d., zolpidem 10 mg p.o. at bedtime p.r.n. FAMILY HISTORY: Significant for mother has diabetes, hypertension and stroke. Father has heart disorder, hypertension. Sister has uterine cancer. Aunt and paternal grandmother has breast cancer. SOCIAL HISTORY: , smokes 1 pack a day. No alcohol use, no drug use. REVIEW OF SYMPTOMS: As per HPI. Rest of review of systems negative. Admission Exam Per Admitting Provider PHYSICAL EXAMINATION: GENERAL: The patient is morbidly obese, not in acute distress. VITAL SIGNS: Temperature 36.7, pulse 68, respiratory rate 16, blood pressure 141/61, oxygen 94% room air. HEENT: No pallor, no icterus. Pupils equal, round, and reactive to light. NECK: No JVD, no neck masses, no carotid bruits. CARDIOVASCULAR: S1, S2 heard, regular rate and rhythm, no murmur, no gallop. RESPIRATORY SYSTEM: Normal AP diameter. No accessory muscle use. No wheezing, no crackles. ABDOMEN: Soft, bowel sounds very sluggish, diffuse abdominal tenderness. Mild guarding, no rigidity. No distention. CENTRAL NERVOUS SYSTEM: Cranial nerves II-XII grossly intact. Nonfocal. EXTREMITIES: Left plantar in dressing. No edema, no erythema seen. Principal Diagnosis Small bowel obstruction, Prediabetes (Hemoglobin A1c is 6.2), History of depression (on antidepressants) Discharge Exam Constitutional WD/WN, vitals as above Eyes PERRL, conjunctivae normal, anicteric sclerae EOM intact bilaterally ENMT external ear and nose normal, oropharynx normal Neck trachea midline, no thyromegaly Respiratory normal respiratory effort, lungs clear to auscultation Cardiovascular RRR, no murmur, no edema Gastrointestinal (Abdomen) Inspection/Auscultation: abdomen normal to inspection and normal bowel sounds Musculoskeletal no cyanosis or clubbing, extremities motor strength 5/5 Head/Neck/Chest: normocephalic and head atraumatic Neurologic PERRL, EOMI, accommodation nl, no face palsy, no dysarthria CN's II-XI intact bilaterally Psychiatric A+Ox3, euthymic affect Discharge Data Allergies Allergy/AdvReac Type Severity Reaction Status Date / Time ciprofloxacin [From Cipro] AdvReac Severe Vomiting Verified 11/11/18 23:59 Consultations 11/11/18 23:37 ED Decision to Admit Stat 11/12/18 08:00 Consult General Surgery Routine Ordered Studies 11/11/18 22:19 CT abd pelvis IV con only Urgent Hospital Course (1) SBO (small bowel obstruction): This 48-year-old female who presents with abdominal pain and found to have small-bowel obstruction. Small-bowel obstruction, abdominal pain. -CT scan 11/11/18: The proximal small bowel loops are distended and fluid-filled, measuring up to 4 cm in diameter. The distal small bowel and colon are decompressed an the appearance is consistent with a small bowel obstruction. The transition point is likely present in the ventral upper pelvis, and this is likely on the basis of adhesions. There is no pneumatosis intestinalis or portal venous gas. No focally thick walled bowel loops are identified. Trace interloop fluid is observed -KUB 11/12/18 Findings are consistent with persistent low-grade small bowel obst ruction -as per general surgery on 11/12/18: continue bowel rest, IVF for today. If better tomorrow, can start clear liquids. Explained that it can take 1-3 days to resolve. Risk of recurrence reviewed. No indication for surgical intervention currently. -11/13/18 update: Patient reports she is continuing to make bowel movements but same as yesterday they are loose stools. She is urinating. No vomiting. abdomen pain appears better compared to yesterday as there is no tenderness on palpation today. Patient She agrees to try clear liquid diet today -11/14/18: patient's diet was advanced to full liquids at night time of 11/13/18 and no acute issues; general surgery started low fiber diet and encouraged ambulation to help with bowel motility and no surgical interventions Recent left plantar surgery -left foot in dressing -history of incision and drainage -continue Keflex History of Depression -Continue Zoloft History of Anxiety -Continue buspirone. Prediabetes -HbA1c is 6.2 on this admission -Recommend low sugar diet to prevent prediabetes condition from becoming diabetes conditions Deep venous thrombosis prophylaxis, sequential compression devices Full Code Discharge Diagnosis Small bowel obstruction, Prediabetes (Hemoglobin A1c is 6.2), History of depression (on antidepressants) Discharge Instructions Patient is discharged to home with follow up Recommend low fiber diet for the next week encouraged ambulation to help with bowel motility Recommend low sugar diet to prevent prediabetes condition from becoming diabetes conditions 11/17/2018 10:20 AM Provider Zully Aguirre MD Department [facility] 11/30/2018 2:30 PM Provider Kristina Chinchilla MD Department [facility] Gynecology/Obstetrics Total Time Total Time Spent Total Time Spent (In Minutes): 40 minutes Total Time Includes: Examination of the Patient, Discharge Planning, Medication Reconciliation and Communication With Other Providers Discharge Plan Discharge Items Patient Disposition: Home - Self-Care Reason For Visit: ABDOMINAL PAIN Discharge Diagnosis: Small bowel obstruction, Prediabetes (Hemoglobin A1c is 6.2), History of depression on medications Condition: Good Discharge Goals: Improve disease control Activity: Resume your previous activity Non-emergency contact: Primary Care Provider Call non-emergency contact if: you have any medication questions Follow-up/Referrals: Kelsi Haley, [Primary Care Provider] - Diet: Carb Consistent or DM2 and Low Fiber Addtl Provider Instructions: Patient is discharged to home with follow up Recommend low fiber diet for the next week encouraged ambulation to help with bowel motility Recommend low sugar diet to prevent prediabetes condition from becoming diabetes conditions 11/17/2018 10:20 AM Provider Zully Aguirre MD Department [facility] 11/30/2018 2:30 PM Provider Kristina Chinchilla MD Department [facility] Gynecology/Obstetrics Prescriptions: Continued buspirone 5 mg Tablet 5 mg PO BID RF: 0 sertraline 100 mg Tablet 100 mg PO BID RF: 0 zolpidem [Ambien] 10 mg Tablet 10 mg PO HS PRN (Reason: Sleep) RF: 0 oxycodone-acetaminophen [Percocet] 5-325 mg tablet 1 - 2 tab PO .q4-6h PRN (Reason: pain) Qty: 30 RF: 0 omeprazole 20 mg capsule,delayed release(DR/EC) 20 mg PO DAILY RF: 0 Stand-Alone Forms: Call Back Authorization, [facility]/Other Patient Handouts: Prediabetes, Diabetes Meal Planning Discharge Orders: Discharge Order (Routine); Ordered 11/14/18 Ordered By: Chance Mendez Admission Data Admit Date/Time: 11/12/18 00:54 Attending Provider: Chance Mendez Admit Provider: Henrry Pope Primary Care Provider: Kelsi Haley Other Providers: Hnerry Pope ; Colby De La Cruz ; Shirley Camarena ; Justa Lind ; Jeison Jerome ; Pranay Drew ; Sarah Woody ; Mairn Allison ; Mario Hinojosa ; Cassandra Figueredo ; Eugene Stokes ; Steffi Gaona ; Mark Centeno Jr ; Elvira Calvo ; Jazlyn Mcgrath Service: Surgical Services
== END 2018-11-14 12:56 | disposition home or self-care (01) | DRG 389 ==
LOC: ED 21:39 → 3N 11-12 00:54